=== PATIENT | male | born 1945 | race Caucasian/White ===

== ENCOUNTER 2024-02-21 08:42 | Emergency (ER) | payer OTHER, SELFPAY ==
--- NOTE | ~2024-02-21 | XR_ITS ---
XR chest 2V 02/21/2024 09:26 Indication: Cough with dyspnea Procedure: 2 view chest Comparison: No prior studies for comparison. Findings: Heart size normal. No focal air space disease, pulmonary edema, pleural effusion or suspect ed pneumothorax. There is diffuse idiopathic skeletal hyperostosis (DISH) of the thoracic spine. Impression: 1: No acute cardiopulmonary disease. Reviewed, dictated and finalized at location A. Impression: 1: No acute cardiopulmonary disease.
[2024-02-21 08:55] VITALS: BP 150/71; PULSE 81; RESP 20; TEMP 36.5; O2SAT 95
--- NOTE | 2024-02-21 08:56 | ED_ITS ---
HPI - URI/Sore Throat General Chief Complaint: Upper Respiratory Infection Stated Complaint: Cough,Vomiting,Headache Time Seen by Provider: 02/21/24 08:56 Source: patient, RN notes reviewed and old records reviewed Mode of arrival: ambulatory Limitations: no limitations History of Present Illness HPI Narrative: 78 year old male presents to [facility] care accompanied by spouse with complaints of cough, body aches, headache, sinus congestion with yellow-green drainage, fevers,up to 103F, nausea with dry heaves since . Patient reports that he is also coughing up some greenish tinged phlegm and feels some dyspnea with exertion. Patient reports that he threw up yesterday and has had some dry heaves, denies any diarrhea. Patient reports that he has been taking Tylenol and Robitussin cough syrup. MD elicited complaint: fever, cough, rhinorrhea, nasal congestion, sinus pain and other (vomiting and dry heaves, body aches and headache.) Pertinent past history: pneumonia and sinusitis Onset (ago): day(s) (3) Severity: moderate Description of mucous: yellow and green Able to tolerate fluids by mouth: Yes Treatments prior to arrival: acetaminophen and other (Robitussin cough syrup) Related Data Home Medications Medication Instructions Recorded Confirmed amlodipine 10 mg tablet 10 mg PO DAILY 02/21/24 02/21/24 hydrochlorothiazide 25 mg tablet 25 mg PO DAILY 02/21/24 02/21/24 Allergies Allergy/AdvReac Type Severity Reaction Status Date / Time No Known Allergies Allergy Verified 02/21/24 08:44 Review of Systems Review of Systems: CONSTITUTIONAL: Reports malaise, chills, sweats, or fever. EYES: Denies visual changes, redness, or discharge. ENT: Reports rhinorrhea, congestion, sinus pain,no otalgia and no sore throat. CARDIOVASCULAR: Denies chest pain, palpitations, or edema. RESPIRATORY: Reports cough.Reports dyspnea with exertion. GASTROINTESTINAL: Denies abdominal pain,positive for nausea, vomiting, no diarrhea SKIN: Denies rash or itching. MUSCULOSKELETAL: Reports myalgia. NEUROLOGIC: Reports headache. 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 There is no relevant family history pertinent to the presenting complaint Exam Narrative: GENERAL: Well-appearing, well-nourished, and in no acute distress. HEAD: Normocephalic EYES: PERRLA, conjunctivae clear ENT: Nares clear, turbinates edematous and erythematous, light green discharge, sinus pressure, headache. Mucous membranes moist. TM pearly spence with dull light reflex bilaterally; no tragal tenderness. Oropharynx erythematous without lesions. Tonsils not present and throat without exudate, no drooling, no hoarseness, no trismus, uvula midline.post nasal drainage NECK: Supple. No lymphadenopathy CHEST: Coarse to auscultation, breath sounds equal. No wheezing, rhonchi, rales, or stridor. No respiratory distress, speaks in full sentences.productive cough, SAO2 95% on room air HEART: Regular rate and rhythm. No murmur heard. SKIN: Warm, dry, no rash. NEURO: Alert and oriented x3. PSYCH: Normal mood and affect Course Course Emergency Course: Patient is aware of diagnosis, understands and agrees to treatment plan.? Anticipatory guidance given.? Patient agrees to follow-up as directed and is aware of reasons to seek care at the emergency department. Portions of this record may have been created with voice recognition software Level of Care: Express Care Visit Vital Signs Vital signs: Vital Signs Temperature 36.5 C 02/21/24 08:55 Pulse Rate 81 02/21/24 08:55 Respiratory Rate 20 02/21/24 08:55 Blood Pressure 150/71 H 02/21/24 08:55 Pulse Oximetry 95 02/21/24 08:55 Oxygen Delivery Room Air 02/21/24 08:55 Temperature 36.5 C 02/21/24 08:55 Pulse Rate 81 02/21/24 08:55 Respiratory Rate 20 02/21/24 08:55 Blood Pressure 150/71 H 02/21/24 08:55 Pulse Oximetry 95 02/21/24 08:55 Oxygen Delivery Room Air 02/21/24 08:55 Reviewed MDM - URI/Sore Throat MDM Narrative Medical decision making narrative: Differential diagnosis considered: Pruitt virus, strep pharyngitis, allergic rhinitis, upper respiratory tract infection, sinusitis, rhinosinusitis, nasopharyngitis. viral pharyngitis, otitis media, otitis externa, pneumonia, bronchitis, viral cough syndrome, viral syndrome, and influenza.? Exam findings show no acute concerns or changes; patient is non-toxic appearing and is in no distress.? Patient is appropriate for outpatient treatment and follow-up. Differential Diagnosis Differential diagnosis: Likely upper respiratory infection, sinusitis, viral infection, bronchitis and other (acute cough) Medical Records Attestation: I reviewed the patient's medical records. Lab Data Attestation: I reviewed the patient's lab results. Lab results narrative: Influenza A negative, Influenza B negative, COVID antigen negative Labs: Lab Results 02/21/24 Range/Units 09:01 POC SARS CoV-2 Ag Negative (Negative) Influenza A Screen Negative Reference Range: Negative Influenza B Screen Negative Reference Range: Negative Imaging Data Attestation: I personally reviewed and interpreted this imaging study as follows: My impression: no acute cardiopulmonary disease, DISH of thoracic spine Radiologist's impression: [address] [address] XRay Report Signed Patient: Karlo Jaeger : 1945 MR#: [id number] Age: 78 Acct:[id number] Loc: [facility]? ? ADM Date: 02/21/24Attending Dr: Ordering Physician: Yanique Dunn APRN Date of Service: 02/21/24 Procedure(s): XR chest 2V Accession Number(s): [id number] cc: Yanique Dunn APRN; Cait, Eugenio Salguero MD~ XR chest 2V 02/21/2024 09:26 Indication: Cough with dyspnea Procedure: 2 view chest Comparison: No prior studies for comparison. Findings: Heart size normal. No focal air space disease, pulmonary edema, pleural effusion or suspected pneumothorax. There is diffuse idiopathic skeletal hyperostosis (DISH) of the thoracic spine. Impression: 1: No acute cardiopulmonary disease. Reviewed, dictated and finalized at location A. Dictated By:? Ryan Hackett MD? 02/21/24926 Signed By:? ? <Electronically signed by? Ryan Hackett MD in OV> Critical Care Time Critical Care Time Critical Care Time: No Discharge Plan Discharge Clinical Impression: Bacterial sinusitis, Acute cough Patient Disposition: Home, Self-Care Condition: Stable Instructions: Antibiotic Form, Sinusitis (ED), Acute Cough (ED) Additional Instructions: Increase fluids especially juices and water Gojt-ckp-[id number] cough and cold medicine of your choice for your symptoms Zyrtec Claritin or Praveena daily include Coricidin brand decongestant Continue your inhaler/nebulizer as directed Steroids as directed--take with food heat to the face 20-30 minutes 4-6 times a day for pain Salt water gargles, throat lozenges or throat sprays as desired Antibiotic as directed--finished the medication Tylenol or ibuprofen for any fever pain If your symptoms persist, change or worsen significantly before you can contact your personal physician then please, without delay, go to the emergency department for further evaluation. Follow-up with PCP in 7-10 days or sooner if needed Follow up with PCP soon in regards to your blood pressure which is elevated above threshold for referral. Blood pressure above 120/80 may indicate pre- hypertension. 150/71 Prescriptions: New prednisone 20 mg tablet 20 mg PO BID Qty: 10 0RF Rx Instructions: take with food evening dose by 6 pm amoxicillin-pot clavulanate 875-125 mg tablet 1 tablet PO Q12H Qty: 20 0RF albuterol sulfate 90 mcg/actuation HFA aerosol inhaler 2 puff inhalation QID PRN (Reason: shortness of breath or wheezing) Qty: 8.5 0RF No Action amlodipine 10 mg tablet 10 mg PO DAILY hydrochlorothiazide 25 mg tablet 25 mg PO DAILY Follow-up/Referrals: Cait,Eugenio Salguero MD [Primary Care Provider] - Time of Disposition: 09:43 Quality [place] Coma Scale Eyes: Open Verbal: Oriented and Alert Motor: Follows Commands [place] Coma Total Score: 15
== END 2024-02-21 09:45 | disposition home or self-care (01) ==
PROVIDERS: Emergency Provider Registered Nurse; PCP Family Medicine
DX: J32.9 Chronic sinusitis, unspecified (principal); R05.1 Acute cough; Z20.822 Contact with and (suspected) exposure to COVID-19; F17.210 Nicotine dependence, cigarettes, uncomplicated; M19.90 Unspecified osteoarthritis, unspecified site; E78.00 Pure hypercholesterolemia, unspecified; I10 Essential (primary) hypertension; Z96.1 Presence of intraocular lens; Z98.42 Cataract extraction status, left eye; Z98.41 Cataract extraction status, right eye; Z85.828 Personal history of other malignant neoplasm of skin
CPT/HCPCS: 71046; 87426; 87804; 99213; G0463

== ENCOUNTER 2025-07-21 09:36 | Emergency (ER) | payer OTHER, SELFPAY ==
[2025-07-21 09:46] VITALS: BP 147/73; PULSE 79; RESP 18; TEMP 36.4; O2SAT 96
--- NOTE | 2025-07-21 09:53 | ED.UPPEXIN ---
HPI - Extremity Injury (Upper) General Chief Complaint: Extremity Injury, Upper Stated Complaint: LT Hand Finger Injury Time Seen by Provider: 07/21/25 09:53 Source: patient Mode of arrival: ambulatory Limitations: no limitations History of Present Illness HPI narrative: 80-year-old male presents with redness, pain and swelling to left index finger. Symptoms progressively getting worse over the past few days. Unsure of injury. 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 Range of motion decreased due to pain, distal neurovascularly intact. All systems reviewed and negative except as noted above. Related Data Home Medications ?Medication ?Instructions ?Recorded ?Confirmed ?Last Taken ?Type amlodipine 10 mg tablet 10 mg PO DAILY 02/21/24 02/21/24 Unknown History hydrochlorothiazide 25 mg tablet 25 mg PO DAILY 02/21/24 02/21/24 Unknown History Allergies Allergy/AdvReac Type Severity Reaction Status Date / Time meperidine (From Demerol) Allergy Mild Other Verified 07/21/25 09:46 Jbdmxcd-WEI-EcW Reductase Allergy Mild Muscle Pain Verified 07/21/25 09:46 Inhibitor PMFSH Past Medical History Medical History (Updated 07/21/25 @ 10:01 by Karishma Young NP) Arthritis Pneumonia Bronchitis Lumbar back pain Elevated cholesterol Hypertension Surgical History Surgical History (Updated 02/22/24 @ 08:17 by Yanique Dunn NP) History of bilateral carpal tunnel release ulnar release 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 There is no relevant family history pertinent to the presenting complaint. Exam Narrative: GENERAL: This is a well-nourished, well-developed patient, in no apparent distress. HEAD: normocephalic, atraumatic. EYES: PERRL. Sclera clear/white. Vision is grossly intact. EARS: External ears normal NOSE: External nose normal NECK: Neck supple, non-tender without lymphadenopathy, masses or thyromegaly. CARDIOVASCULAR: Regular rate and rhythm without murmurs, gallops, or rubs. RESPIRATORY: Clear to auscultation. Breath sounds equal bilaterally. No wheezes, rales, or rhonchi. SKIN: warm, Dry, intact with no suspicious lesions or rash, good texture and turgor. NEURO: awake, alert, and oriented to person, place and time. There were no obvious focal neurologic abnormalities. EXTREMITIES: erythema extending from left 2nd MCP to distal phalanx With swelling. Range of motion decreased due to pain and swelling. Distal neurovascularly intact. Tender to proximal phalanx and PIP. Course Course Level of Care: Express Care Visit Vital Signs Vital signs: Vital Signs Temperature 36.4 C 07/21/25 09:46 Pulse Rate 79 07/21/25 09:46 Respiratory Rate 18 07/21/25 09:46 Blood Pressure 147/73 H 07/21/25 09:46 Pulse Oximetry 96 07/21/25 09:46 Oxygen Delivery Room Air 07/21/25 09:46 Temperature 36.4 C 07/21/25 09:46 Pulse Rate 79 07/21/25 09:46 Respiratory Rate 18 07/21/25 09:46 Blood Pressure 147/73 H 07/21/25 09:46 Pulse Oximetry 96 07/21/25 09:46 Oxygen Delivery Room Air 07/21/25 09:46 Reviewed MDM - Extremity Injury (Upper) MDM Narrative Medical decision making narrative: will treat redness and swelling to left index finger with antibiotic for cellulitis. Distal neurovascularly intact. Recommend follow-up with primary care physician not improving. For any worsening symptoms will go to the ER. Differential Diagnosis Differential diagnosis: Likely other ( Cellulitis, abscess, gout, arthritis) Discharge Plan Discharge Clinical Impression: Cellulitis of left index finger Patient Disposition: Home Condition: Stable Instructions: Antibiotic Form, Cellulitis (ED) Additional Instructions: take antibiotic as prescribed until gone. Take ibuprofen every 6-8 hours as needed for pain. Elevate when at rest. Follow-up with your primary care physician if not improving. Patient Language: Faroese Prescriptions: New cephalexin 500 mg capsule 500 mg PO QID 7 Days Qty: 28 0RF No Action amlodipine 10 mg tablet 10 mg PO DAILY hydrochlorothiazide 25 mg tablet 25 mg PO DAILY albuterol sulfate 90 mcg/actuation HFA aerosol inhaler 2 puff inhalation QID PRN (Reason: shortness of breath or wheezing) Qty: 8.5 0RF Follow-up/Referrals: Cait,Eugenio Salguero MD [Primary Care Provider] Time of Disposition: 10:02
--- OUTSIDE RECORDS SUMMARY | 2025-07-21 10:03 | XMS_ITS | Clinical Summary ---
Author Organization [facility] Address [address] [place] [address] Care Team Providers Care Stamp Pad Finisher Name Role Phone Eugenio Chavira MD Primary Care Provider [phone] Allergies Active Allergy Reactions Criticality Noted Date Comments Meperidine Rash Medium 12/22/2018 Xekgfds-Tmc-Bae Reductase Inhibitors Muscle pain Medium 04/24/2023 Medications amLODIPine (NORVASC) 10 mg tablet Take 1 tablet (10 mg total) by mouth daily 01/14/2023 Active ascorbic acid 500 mg tablet,chewable Take 1 tablet/chew tab (500 mg total) by mouth daily 12/17/2021 Active cholecalciferol (VITAMIN D-3) 25 mcg (1,000 unit) tablet Take 1 tablet (1,000 Units total) by mouth daily Active colchicine (COLCRYS) 0.6 mg tablet Take two tablets by mouth after onset of gouty pain. After one hour, take a third tablet. Take a fourth hour 24 hours after initial dose 05/25/2019 Active docosahexaenoic acid-epa 120-180 mg capsule Take 1 capsule by mouth daily 02/05/2018 Active hydroCHLOROthia zide (HYDRODIURIL) 25 mg tablet Take 1 tablet (25 mg total) by mouth daily 01/29/2023 Active ibuprofen (ADVIL,MOTRIN) 800 mg tablet Take 1 tablet (800 mg total) by mouth every 6 (six) hours as needed Active potassium chloride ER 10 mEq CR tablet Take 1 tablet/capsu le (10 mEq total) by mouth 2 (two) times a day Active pravastatin (PRAVACHOL) 20 mg tablet 1 tablet (20 mg total) daily 11/20/2017 Active sildenafiL (VIAGRA) 50 mg tablet Take 1 tablet (50 mg total) by mouth daily as needed 05/17/2021 Active valsartan-hydro chlorothiazide (DIOVAN-HCT) 320-12.5 mg per tablet daily Active magnesium oxide 400 mg magnesium capsule Take 1 capsule by mouth daily Active multivitamin capsule Take 1 capsule by mouth daily Active acetaminophen-c odeine (TYLENOL with CODEINE #3) 300-30 mg per tablet Take 1-2 tablets by mouth every 4 (four) hours as needed for pain 30 tablet 05/08/2023 Active acetaminophen-c odeine (TYLENOL with CODEINE #3) 300-30 mg per tablet Take 1-2 tablets by mouth every 6 (six) hours as needed for pain 15 tablet 06/17/2023 Active Active Problems Problem Noted Date Diagnosed Date Carpal tunnel syndrome on left 06/03/2023 Bilateral carpal tunnel syndrome 02/19/2023 Cubital tunnel syndrome 02/19/2023 Chronic gout of multiple sites 12/03/2022 0 02/19/2023 Pure hypercholesterolemia 12/03/20222022 Cough 07/10/2022 02/19/2023 Overview (02/19/2023): Added automatically from request for surgery [id number] Bilateral primary osteoarthritis of knee 022 02/19/2023 Overview (02/19/2023): Last Assessment & Plan: We discussed the risks, benefits and alternatives. The only thing proven to slow the progression of osteoarthritis is weight loss. Every pound lost relieves 4 to 6 pounds of stress across the knee. We discussed unloading braces. Formal physical therapy to help with flexibility, mobility and strength. We discussed TENS units. Nonsteroidal anti-inflammatories as well as Tylenol and pain medication and their side effects. We discussed steroid versus Visco supplement injection. We discussed eventual total knee arthroplasty. Cannot use anti-inflammatories because it elevates his heart rate as seen with both ibuprofen and Celebrex. Would like to avoid steroids to avoid the possibility of increased heart rate or palpitations. Preapproval for viscosupplementation. Medial unloading brace for the right knee for pain and stability. 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 Anemia, mild 08/26/2018 02/19/2023 Overview (02/19/2023): Last Assessment & Plan: Very mild decreased hemoglobin on last check, repeat in 6 months. Asymptomatic. Dysphagia 05/27/2018 02/19/2023 GERD (gastroesophageal reflux disease) 8 02/19/2023 Overview (02/19/2023): Last Assessment & Plan: Reasonably controlled on current dosing of omeprazole. No breakthrough symptoms. Continue current therapy. Check vitamin B12 and folic acid levels with next visit. Dominant drusen, bilateral 02/09/201802/19 Arthritis 02/05/2018 02/19/2023 Chronic bilateral low back pain without sciatica 02/05/2018 02/19/2023 Overview (02/19/2023): Last Assessment & Plan: Progressively increasing symptoms, suggestive of spinal stenosis, with some impact on his activities of daily life. Continues to take a daily dose of NSAIDs in the morning for relief, no other medications used typically. Interested in additional imaging and possible referral for interventional pain management. Placing order for MRI though he would like to defer the actual imaging until June or so. Exertional dyspnea 02/05/2018 02/19/2023 Overview (02/19/2023): Last Assessment & Plan: Mild, stable. Continue to monitor. Hearing loss in right ear 02/05/20182022 Essential hypertension 07/25/2016 3 Overview (02/19/2023): Last Assessment & Plan: Borderline controlled. 1) Medication: continue current medication regimen unchanged, encouraged home monitoring, call for persistent elevations at or above 130/85. 2) Regular aerobic exercise 3) Recheck in 6 months, sooner should new symptoms or problems arise. Hyperlipidemia 07/25/2016 02/19/2023 Surgical History Surgery Date Site/Laterality Comments TONSILLECTOMY age 11 or 12 COLONOSCOPY 11/03/2020 - 11/02/2021 ULNAR NERVE REPAIR 05/08/2023 Right decompression ULNAR NERVE REPAIR 06/17/2023 Left CARPAL TUNNEL RELEASE 06/17/2023 Left Medical History Medical History Date Comments Hypertension Osteoarthritis Allergic rhinitis GERD (gastroesophageal reflux disease) Family History Relation Name Status Comments Father Mother Social History Tobacco Use Types Packs/Day Years Used Date Smoking Tobacco: Former Cigarettes 1 10 03 963 - 1974 Smokeless Tobacco: Former Tobacco Cessation:Counseling Given: Not Answered AUDIT-C Answer Date Recorded Q1: How often do you have a drink containing alc ohol? 2-3 times a week 06/17/2023 Q2: How many drinks containi ng alcohol do you have on a typical day when you are drinking? 1 or 2 06/17/2023 Q3: How often do you have si x or more drinks on one occasion? Never 06/17/2023 Personal Safety Answer Date Recorded Have you ever been in or are you currently in a harmful physical or emotional relationship or is someone making you feel afraid or unsafe? 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 Gender Identity Not on file Sexual Orientation Not on file Obstetrics History Last Filed Vital Signs Vital Sign Reading Time Taken Comments Blood Pressure 147/75 06/17/2023 11:05 AM CDT Pulse 58 06/17/2023 11:05 AM CDT Temperature 36.2 C (97.1 F) 06/17/2023 10:35 AM CDT Respiratory Rate 16 06/17/2023 11:05 AM CDT Oxygen Saturation 95% 06/17/2023 11:05 AM CDT Inhaled Oxygen Concentration - - Weight 81 kg (178 lb 8 oz) 06/17/2023 8:15 AM CD T Height 167.6 cm (5' 6) 06/17/2023 8:15 AM CDT Body Mass Index 28.81 06/17/2023 8:15 AM CDT Plan of Treatment Health Maintenance Due Date Last Done Comments Depression Screening 1945 DTaP/Tdap/Td Vaccine (1 - Tdap) 1955 Hepatitis B Screening 1962 Zoster Vaccine (1 of 2) 1994 Well Visit 65+ 2009 Fall Risk Assessment 06/17/2024 06/17/2023 Covid-19 Vaccine (2024-12 6 season) 2025 08/06/2022, 10/11/2021, 01/03/2021, Additional history exists Influenza Vaccine (#1) 2025 , 10/17/2021, 09/27/2020, Additional history exists Pneumococcal vaccine 65+ Completed 020, 02/05/2018, 07/25/2016 Insurance [facility] Care Teams Stamp Pad Finisher Relationship Specialty [place] [id number] [place] [address] PCP - General Family Practice 02/11/23
--- OUTSIDE RECORDS SUMMARY | 2025-07-21 10:04 | XMS_ITS | Clinical Summary ---
Author Organization [facility] Address [address] [place] [address] Care Team Providers Care Pricing/Signage Team Member Name Role Phone Truong Lauren MD Primary Care Provider [phone] MD Unavailable Source Comments [facility],non-owned Affiliates and Associated Physician Practices is amultiple site organization consisting of ambulatory clinics and hospital sitesin [place], [place], [place] and [place]. This disclosure is being madepursuant to the Care Everywhere program and may not contain all information available regarding this patient. Last updated 18.[facility] Allergies No known active allergies Medications * Be aware that medications may not be up to date on this document. Alwaysverify current medications with the patient. ibuprofen (IBU) 800 MG tablet Take 800 mg by mouth every 6 hours as needed. Active Social History Tobacco Use Types Packs/Day Years Used Date Smoking Tobacco: Former Alcohol Use Standard Drinks/Week Comments Not Asked 0 (1 standard drink = 0.6 oz pur e alcohol) Sex and Gender Information Value Date Recorded Sex Assigned at Not on file Legal Sex Male 12:36 PM [employer] Gender Identity Not on file Sexual Orientation Not on file Plan of Treatment Health Maintenance Due Date Last Done Comments MEDICARE AWV 12 MONTHS 1945 DTAP/TDAP/TD VACCINES (1 - Tdap) 1963 PNEUMOCOCCAL VACCINE 50+ (1 of 1 - PCV) 1994 ZOSTER VACCINE (1 of 2) 1994 Respiratory Syncytial Virus (RSV) Vaccine Pt: or over 60 yrs (1 - 1-dose 75+ series) 2019 DEPRESSION SCREENING 11/03/2024 COVID-19 VACCINE ( season) 2025 08/06/2022, 10/11/2021, 01/03/2021, Additional history exists INFLUENZA VACCINE (#1) 2025 10/10/2022, 2017 HEPATITIS B VACCINE Aged Out No longe r eligible based on patient's age to complete this topic HIB VACCINE Aged Out No longer eligi ble based on patient's age to complete this topic HPV VACCINE Aged Out No longer eligi ble based on patient's age to complete this topic MENINGOCOCCAL (Group B) VACCINE SHARED DECISION-MAKING Aged Out No longer eligible based on patient's age to complete this topic MENINGOCOCCAL GROUPS A/C/Y/W VACCINE Aged Out No longer eligible based on patient's age to complete this topic Insurance Care Teams Pricing/Signage Team Member Relationship Specialty Start Date End Date Truong Lauren MD [facility] [place] [address] PCP - General 09/16/[address] MD [address] [place] [address] Orthopedic Surgery 09/17/11
--- OUTSIDE RECORDS SUMMARY | 2025-07-21 10:04 | XMS_ITS | Clinical Summary ---
Author Organization [facility] Address [address] Sen[place]: Epic Prelude ADT JU[place] [address] Care Team Providers Care Tub Operator Name Role Phone Unavailable Primary Care Provider Unavailabl e Allergies No known active allergies Medications hydroCHLOROthi azide 25 mg tablet TAKE ONE TABLET BY MOUTH ONCE DAILY 90 Tablet 1 2 4:59 PM MANAGEMENT PROFESSOR 07/23/20 22 Active acetaminophen- codeine (TYLENOL #3) 300-30 mg tablet Take 1-2 tablets by mouth every 6 (six) hours as needed for pain 15 Tablet 06/17/20 23 Active cetirizine (ZyrTEC) 10 mg tablet Take 1 tablet (10 mg total) by mouth daily. 30 Tablet 3 12:26 PM MANAGEMENT PROFESSOR 09/08/20 23 Active ciprofloxacin HCl (CILOXAN) 0.3 % solution Instill 1 drop into surgical eye three times daily starting 2 days before surgery and continuing for 1 week after 5 mL 3 4:03 PM MANAGEMENT PROFESSOR 10/17/20 23 Active diclofenac sodium (VOLTAREN) 0.1 % solution Instill 1 drop into surgical eye three times daily starting 2 days before surgery and continuing for 2 weeks after 5 mL 3 4:03 PM MANAGEMENT PROFESSOR 10/17/20 23 Active prednisoLONE acetate (PRED FORTE) 1 % suspension Instill 1 drop into surgical eye three times daily starting after surgery and continuing for 3 weeks 10 mL 1 3 4:03 PM MANAGEMENT PROFESSOR 10/17/20 23 Active predniSONE (DELTASONE) 20 mg tablet Take one tablet (20 mg) by mouth with food twice a day; take evening dose by 6 pm 10 Tablet 4 11:38 AM CDT 02/21/20 24 Active ibuprofen (MOTRIN) 600 mg tablet Take 1 tablet by mouth every 6 hours as needed for pain, starting after surgery 15 Tablet 4 10:38 AM CDT 06/08/20 24 Active tobramycin-dex AMETHasone (TOBRADEX) 0.3-0.1 % suspension Instill 1 drop into Left eye four times daily-START DROPS AFTER SURGERY 5 mL 4 10:38 AM CDT 06/08/20 24 Active aspirin (ECOTRIN EC) 81 mg Tablet, Delayed Release (E.C.) Take 1 tablet (81 mg total) by mouth 2 (two) times a day for 30 days. 60 Tablet 11/05/19 25 Active amoxicillin (AMOXIL) 500 mg capsule Take 4 capsules by mouth one hour before dental procedures 8 Capsule 1 5 12:07 PM CDT 01/25/20 25 Active amoxicillin-cl avulanate (AUGMENTIN) 500-125 mg tablet Take 1 Tablet by mouth 2 times daily. 14 Tablet 5 12:08 PM CDT 02/10/20 25 Active ibuprofen (MOTRIN) 400 mg tablet Take 1 Tablet (400 mg) by mouth every 6 hours as needed. 20 Tablet 5 12:08 PM CDT 02/10/20 25 Active ondansetron (ZOFRAN ODT) 4 mg Tablet, Rapid Dissolve Dissolve 1 Tablet (4 mg) on the tongue every 6 hours as needed for nausea 10 Tablet 5 12:08 PM T 02/10/20 25 Active chlorhexidine gluconate (Peridex) 0.12 % Mouthwash Rinse mouth with 15 ml (1 capful) for 30 seconds every morning and evening after toothbrushing. Expectorate after rinsing, do not swallow. 473 mL 5 12:08 PM CDT 02/10/20 25 Active oxyCODONE-acet aminophen (Percocet) 5-325 mg tablet Take 1/2 to 1 tablet by mouth every 4 to 6 hours as needed for pain. Max of 4 tablets per day. 10 Tablet 5 12:08 PM CDT 02/10/20 25 Active albuterol sulfate HFA 90 mcg/actuation aerosol inhaler Inhale 2 puffs by mouth four times daily As Needed for shortness of breath or wheezing 8.5 Gram 5 5 11:19 AM CDT 02/16/20 25 Active aspirin (ECOTRIN EC) 81 mg Tablet, Delayed Release (E.C.) Take 1 tablet (81 mg total) by mouth 2 (two) times a day. Indications: Treatment to Prevent Deep Vein Thrombosis 60 Tablet 04/13/20 25 Active docusate sodium (COLACE) 100 mg capsule Take 1 capsule (100 mg total) by mouth 2 (two) times daily for 10 days. Indications: Opioid-Induced Constipation (Hold for loose or frequent stools) 30 Capsule 04/13/20 25 Active acetaminophen- codeine (TYLENOL #3) 300-30 mg tablet Take 1-2 tablets by mouth every 4 (four) hours as needed for Pain 12 Tablet 5 10:02 AM CDT 04/27/20 25 Active amLODIPine (NORVASC) 10 mg tablet Take 1 Tablet (10 mg) by mouth daily. 90 Tablet 5 2:20 PM CDT 07/15/20 25 Active hydroCHLOROthi azide 25 mg tablet Take 1 Tablet (25 mg) by mouth daily. 90 Tablet 5 2:20 PM CDT 07/15/20 25 Active amLODIPine (NORVASC) 10 mg tablet Take 1 Tablet (10 mg) by mouth daily. 90 Tablet 5 9:53 AM CDT 04/15/20 25 025 Discontinued hydroCHLOROthi azide 25 mg tablet Take 1 Tablet (25 mg) by mouth daily. 90 Tablet 5 9:53 AM CDT 04/15/20 25 025 Discontinued Encounters Date Type Department Care Team Description 06/08/2025 External Device Data ST[facility] ABSTRACTION Provider, Abstract from Last 3 Months Social History Tobacco Use Types Packs/Day Years Used Date Smoking Tobacco: Never Assessed Sex and Gender Information Value Date Recorded Sex Assigned at Not on file Legal Sex Male 3:24 PM CDT Gender Identity Not on file Sexual Orientation Not on file Plan of Treatment Health Maintenance Due Date Last Done Comments DTAP/TDAP/TD VACCINES (1 - Tdap) 1963 PNEUMOCOCCAL VACCINE 50+ YEARS (1 of 1 - PCV) 05/30/19 94 ZOSTER VACCINE (1 of 2) 1994 RSV VACCINE (60+ or ) (1 - 1-dose 75+ series) 2019 INFLUENZA VACCINE (#1) 2025 Insurance [employer] (INTERNAL) [facility] [employer] Medicare Part D
== END 2025-07-21 10:06 | disposition home or self-care (01) ==
PROVIDERS: Emergency Provider Nurse Practitioner Family; PCP Family Medicine
DX: L03.012 Cellulitis of left finger (principal); Z87.891 Personal history of nicotine dependence; I10 Essential (primary) hypertension; E78.00 Pure hypercholesterolemia, unspecified; M19.90 Unspecified osteoarthritis, unspecified site
CPT/HCPCS: 99213; G0463